=== PATIENT | female | born 1985 | race Two or more races ===

== ENCOUNTER 2017-10-12 10:32 | Emergency (ER) | payer MEDICAID ==
[~2017-10-12] VITALS: Ht 157.5 cm; Wt 88.5 kg
[2017-10-12 10:39] VITALS: Ht 157.5 cm; Wt 88.5 kg
[2017-10-12 12:37] VITALS: BP 125/84
== END 2017-10-12 12:37 | disposition home or self-care (01) ==
LOC: ED 10:32
DX: T84.018A Broken internal joint prosthesis, other site, initial encounter (principal); M96.69 Fracture of other bone following insertion of orthopedic implant, joint prosthesis, or bone plate
CPT/HCPCS: J1200; J1885; J2270